=== PATIENT | female | born 1935 | race Caucasian/White ===

== ENCOUNTER → 2016-10-25 | Outpatient (CLI) | payer MEDICARE, OTHER ==
[~2016-10-25] MED LIST: AMLO1TAB12 PO; ASPI81TA3 PO; CHOL100016 PO; COLE625T2 PO; FISH1CAP7 PO; LEVO25TA53 PO; PROP10TA6 PO; [UNRECOGNIZED DRUG - CODE] PO
[2016-10-25 09:22] LABS: BASOPHILS % 0.4 % (0.0-2.0); EOSINOPHILS # 0.1 10^3/ul (0.0-0.5); EOSINOPHILS % 2.3 % (0.0-7.0); HEMATOCRIT 40.6 % (37.0-47.0); HEMOGLOBIN 13.5 g/dl (12.0-16.0); LYMPHOCYTES # 1.9 10^3/ul (0.8-2.9); LYMPHOCYTES % 33.9 % (15.0-51.0); MEAN CORPUSCULAR HEMOGLOBIN 30.2 pg (29.0-33.0); MEAN CORPUSCULAR HGB CONC 33.2 g/dl (32.0-37.0); MEAN PLATELET VOLUME 7.5 fl (7.4-10.4); MONOCYTE # 0.5 10^3/ul (0.3-0.9); MONOCYTES % 8.9 % (0.0-11.0); NEUTROPHIL # 3.1 10^3/ul (1.6-7.5); NEUTROPHILS % 54.5 % (39.0-77.0); PLATELET COUNT 245 10^3/UL (140-440); RED BLOOD COUNT 4.46 10^6/ul (4.20-5.40); RED CELL DISTRIBUTION WIDTH 15.6 % (11.5-14.5); UNCORRECTED WBC 5.6 10^3/ul (4.8-10.8); WHITE BLOOD COUNT 5.6 10^3/ul (4.8-10.8)
[2016-10-25 09:24] LABS: CONDITION 1; LH ANALYZER COMMENTS 1
[2016-10-25 09:37] LABS: ALBUMIN 4.1 g/dl (3.3-4.9)
[2016-10-25 09:38] LABS: POTASSIUM 4.3 mmol/L (3.5-5.1)
[2016-10-25 09:40] LABS: ALBUMIN/GLOBULIN RATIO 1.17; BILIRUBIN,INDIRECT 0.2 mg/dl (0-1.1); BILIRUBIN,TOTAL 0.2 mg/dl (0.2-1.3); CALCIUM 8.7 mg/dl (8.4-10.2); CREATININE 0.52 mg/dl (0.44-1.00); TOTAL PROTEIN 7.6 g/dl (6.1-8.1)
--- NOTE | 2016-10-25 10:37 | RADRPT ---
PROCEDURE: CT Lumbar Spine. CLINICAL INDICATION: Back pain TECHNIQUE: Continuous axial CT images were obtained. Sagittal and coronal reformations were creat ed from the raw axial data. The images were reviewed on a PACS workstation. The calculated radiatio n dose measures 1037 mGy centimeters. The CTDI measures 35 mGy COMPARISON: None available FINDINGS: There is a normal lumbar lordosis. There is an upper lumbar levoscoliosis. There is grade 1 angela listhesis at L3-L4, measuring up to 5 mm. There is severe disk space narrowing at L5-S1, with vacuu m disk change and adjacent endplate sclerosis. Vertebral body heights are maintained. No focal lyti c or sclerotic lesions are identified. T12-L1: There is a mild disk osteophyte complex, 3 mm. There is mild bilateral facet hypertrophy. There is no bony central canal stenosis. There is no bony foraminal stenosis.. L1-L2: There is a mild disk osteophyte complex, 3 mm. There is mild bilateral facet hypertrophy. T here is no bony central canal stenosis. There is minimal bilateral bony foraminal stenosis.. L2-L3: There is a mild to moderate disk osteophyte complex, 4 mm. There is mild to moderate bilater al facet hypertrophy. There is mild bony central canal stenosis, and bilateral left greater than ri ght lateral recess narrowing. There is minimal bilateral bony foraminal stenosis.. L3-L4: There is grade 1 anterolisthesis. There is severe bilateral facet hypertrophy. There is mod erate appearing bony central canal stenosis with canal diameter measuring 7 x 9 mm. There is bilate ral lateral recess narrowing. There is moderate bilateral bony foraminal stenosis.. L4-L5: There is a mild diffuse disk bulge. There is severe bilateral facet hypertrophy. There is m ild to moderate central canal stenosis, and right lateral recess stenosis. There is mild to moderat e left and moderate right bony foraminal stenosis.. L5-S1: There is a moderate disk osteophyte complex. There is severe bilateral facet hypertrophy. T here is mild central canal stenosis. There is severe bilateral foraminal stenosis.. There is no abnormal paravertebral soft tissue mass. There is extensive aortic and branch vessel ca lcification. IMPRESSION: 1. Upper lumbar levoscoliosis. 2. At L3-L4, there is grade 1 anterolisthesis, 5 mm. Along with severe facet hypertrophy, this pro duces moderate central canal stenosis and bilateral lateral recess narrowing. There is moderate janina ateral foraminal stenosis. 3. Mild to moderate central canal stenosis and moderate right bony foraminal stenosis at L4-L5, rel ated to mild disk bulge and severe facet hypertrophy. 4. Severe bilateral foraminal stenosis and mild central canal stenosis at L5-S1, secondary to disk height loss, moderate disk osteophyte complex, and severe facet hypertrophy. 5. Mild central canal stenosis at L2-L3. RPTAT: DD .Jung Johnson MD, Date Time Electronically viewed and signed by .Jung Johnson MD, on 10/25/2016 10:36 .T/
[2016-10-27 16:15] LABS: CREATININE, RANDOM URINE 32 mg/dL (20-320); MICROALBUMIN <0.2 mg/dL; MICROALBUMIN/CREATININE RATIO NOTE (<30)
== END | disposition home or self-care (01) ==
LOC: LAB 08:29
PROVIDERS: ATTEND Internal Medicine Nephrology
DX: M54.5 Low back pain (principal); M47.896 Other spondylosis, lumbar region; M48.07 Spinal stenosis, lumbosacral region; M41.86 Other forms of scoliosis, lumbar region; I10 Essential (primary) hypertension
CPT/HCPCS: 72131; 80053; 80061; 82043; 85025

== ENCOUNTER 2016-12-21 18:19 | Emergency (ER) | payer MEDICARE, OTHER ==
[~2016-12-21] VITALS: Ht 167.6 cm; Wt 75.0 kg
[2016-12-21 19:03] VITALS: Ht 167.6 cm; Wt 75.0 kg
[2016-12-21] MEDS ORDERED: SOD CHLORIDE 0.9% 1,000 ML IV ONE (22:30)
[2016-12-21] MEDS ORDERED: ALPRAZOLAM 0.25 MG TAB PO ONE (22:30)
[2016-12-21] MEDS ORDERED: AMLO-350 PO (22:34)
[2016-12-21] MEDS ORDERED: OMEP20CA16 PO (22:34)
[2016-12-21 22:41] LABS: ADD SCAN DIFF NO
[2016-12-21 22:47] LABS: BASOPHIL # 0.1 10^3/ul (0.0-0.1); BASOPHILS % 0.4 % (0.0-2.0); EOSINOPHILS % 0.1 % (0.0-7.0); HEMATOCRIT 39.9 % (37.0-47.0); HEMOGLOBIN 13.2 g/dl (12.0-16.0); LYMPHOCYTES # 1.2 10^3/ul (0.8-2.9); LYMPHOCYTES % 8.7 % (15.0-51.0); MEAN CORPUSCULAR HEMOGLOBIN 30.1 pg (29.0-33.0); MEAN CORPUSCULAR HGB CONC 33.1 g/dl (32.0-37.0); MEAN CORPUSCULAR VOLUME 90.9 fl (82.0-101.0); MEAN PLATELET VOLUME 10.2 fl (7.4-10.4); MONOCYTES % 7.4 % (0.0-11.0); NEUTROPHIL # 11.6 10^3/ul (1.6-7.5); PLATELET COUNT 201 10^3/UL (140-415); RED BLOOD COUNT 4.39 10^6/ul (4.20-5.40); RED CELL DISTRIBUTION WIDTH 15.6 % (11.5-14.5)
[2016-12-21 22:59] LABS: POTASSIUM 4.1 mmol/L (3.5-5.1)
[2016-12-21 23:01] LABS: ADD UMIC YES; BILIRUBIN,INDIRECT 0.2 mg/dl (0-1.1); BILIRUBIN,TOTAL 0.2 mg/dl (0.2-1.3); CREATININE 0.62 mg/dl (0.44-1.00); URINE BILIRUBIN (Dip) NEGATIVE (NEGATIVE); URINE BLOOD (Dip) 2+ (NEGATIVE); URINE COLOR LT. YELLOW (YELLOW); URINE GLUCOSE (Dip) NEGATIVE (NEGATIVE); URINE KETONES (Dip) NEGATIVE (NEGATIVE); URINE LEUKOCYTE ESTERASE (Dip) 1+ (NEGATIVE); URINE NITRITE (Dip) NEGATIVE (NEGATIVE); URINE TOTAL PROTEIN (Dip) NEGATIVE (NEGATIVE); URINE UROBILINOGEN (Dip) 0.2 E.U./dL (0.1-1.0)
[2016-12-21 23:02] LABS: CALCIUM 9.1 mg/dl (8.4-10.2)
--- NOTE | 2016-12-21 23:05 | RADRPT ---
PROCEDURE: XR Chest. CLINICAL INDICATION: Abdominal pain. TECHNIQUE: Single frontal view of the chest was obtained COMPARISON: 11/25/2014. FINDINGS: The heart and mediastinum are within normal limits. Atherosclerotic calcifications in the thoracic aorta. Elevated right hemidiaphragm. Centrolobular emphysema. The lungs are clear. There is no pleural effusion or pneumothorax. IMPRESSION: No acute disease. RPTAT: [facility] Physician Shanae Date Time Electronically viewed and signed by Flex Kiser Physician on 12/21/2016 23:05 RS/
[2016-12-21 23:19] LABS: BACTERIA,URINE FEW; SQUAMOUS EPITHELIAL CELL,UR FEW
[2016-12-22] VITALS: BP 116/62; PULSE 102; RESP 24; TEMP 98.1
[2016-12-22] MEDS ORDERED: CEFTRIAXONE 1 GM/50 ML (PMX) 50 ML IVPB ONE
[2016-12-22] MEDS ORDERED: HYDR25CA PO (00:59)
[2016-12-22] MEDS ORDERED: CIPR500T4 PO (00:59)
--- NOTE | 2016-12-22 01:03 | ERD ---
ER Documentation Chief Complaint Date/Time DATE: 12/22/16 TIME: 01:00 Chief Complaint anxiety due to her cousin annoyed her today HPI This 81-year-old female comes in with her daughter after she got in an argument with her niece today. Otherwise everyone that she lives with she gets along with well. This sometimes causes her to and anxiety. Also noted that she had a fever. Patient denies any signs of cough dysuria or frequent urination fever or chills. She states that she is completely asymptomatic except for anxiety which causes her to have fever sometimes. ROS All systems reviewed and are negative except as per history of present illness. Medications Home Meds Active Scripts Hydroxyzine Pamoate* (Vistaril*) 25 Mg Capsule, 25 MG PO Q8 for ANXIETY, #8 CAP Prov:TASHALUIS ALFREDO DO 12/22/16 Ciprofloxacin Hcl* (Ciprofloxacin Hcl*) 500 Mg Tablet, 500 MG PO BID for 7 Days , TAB Prov:LUIS ALFREDO CORDOVA DO 12/22/16 Reported Medications Omeprazole* (Omeprazole*) 20 Mg Capsule.dr, 20 MG PO DAILY, #30 CAP 12/21/16 Amlodipine/Valsartan (Amlodipine-Valsartan 5-160 mg) 1 Each Tablet, 1 TAB PO DAILY, #30 TAB 12/21/16 Aspirin* (Aspirin* Chew) 81 Mg Tab.chew, 81 MG PO DAILY 11/09/12 Colesevelam Hcl* (Welchol*) 625 Mg Tablet, 625 MG PO BID 11/09/12 Propranolol Hcl* (Propranolol Hcl*) 10 Mg Tablet, 10 MG PO BID 11/09/12 Discontinued Reported Medications Levothyroxine Sodium* (Levothyroxine Sodium*) 25 Mcg Tablet, 25 MCG PO AC BREAKFAST, TAB 12/01/14 Cholecalciferol (Vitamin D3) 1,000 Unit Capsule, 1000 UNIT PO HS 04/09/13 Amlodipine-Valsartan (Exforge) 1 Tab Tablet, 1 TAB PO AM 04/09/13 Fish Oil/Borage/Flax/Om3,6,9#1 (Triple [place]rens 3-6-9 Softgel) 1 Each Capsule, 1 EACH PO DAILY 11/09/12 Calcium Carb/Vit D3/Minerals (Caltrate-600 With Vit D Tab) 1 Tab Tablet, 1 TAB PO DAILY 11/09/12 Allergies Allergies: Coded Allergies: Penicillins (Verified Allergy, Severe, THROAT SWELLING, 12/21/16) PMhx/Soc History of Surgery: Yes (APPENDECTOMY, TAHBSO, C SECTION LEF BREAST CYST, BACK CYST) Anesthesia Reaction: No Hx Neurological Disorder: No Hx Respiratory Disorders: Yes (SEASONAL ALLERGY) Hx Cardiac Disorders: Yes (HTN, DJD, HLP) Hx Psychiatric Problems: No Hx Miscellaneous Medical Probl: Yes (R HAMMER TOE PROB) Hx Alcohol Use: No Hx Substance Use: No Hx Tobacco Use: No Smoking Status: Never smoker Physical Exam Vitals Vital Signs Date Time Temp Pulse Resp B/P Pulse Ox O2 Delivery O2 Flow Rate FiO2 12/22/16 00:00 98.1 102 24 116/62 93 Room Air 12/21/16 22:15 98.3 109 17 110/52 95 Room Air 12/21/16 19:03 101.8 92 20 137/77 98 Physical Exam Const: [] No distress Head: Atraumatic Eyes: Normal Conjunctiva ENT: Normal External Ears, Nose and Mouth. Neck: Full range of motion..~ No meningismus. Resp: Clear to auscultation bilaterally Cardio: Regular rate and rhythm, no murmurs Abd: Soft, non tender, non distended. Normal bowel sounds Skin: No petechiae or rashes, warm to touch Ext: No cyanosis, or edema Neur: Awake and alert 3, no focal deficits Psych: Normal Mood and Affect Result Diagram: 12/21/16 2220 12/21/16 2220 Results 24 hrs Laboratory Tests Test 12/21/16 22:20 Alanine Aminotransferase (ALT/SGPT) 32IU/L Albumin 4.0g/dl Albumin/Globulin Ratio 1.00 Alkaline Phosphatase 116IU/L Anion Gap 16 Aspartate Amino Transf (AST/SGOT) 33IU/L Basophils # 0.110^3/ul Basophils % 0.4% Blood Urea Nitrogen 14mg/dl Calcium Level 9.1mg/dl Carbon Dioxide Level 26mmol/L Chloride Level 101mmol/L Creatinine 0.62mg/dl Direct Bilirubin 0.00mg/dl Eosinophils # 0.010^3/ul Eosinophils % 0.1% Globulin 4.00g/dl Glucose Level 144mg/dl Hematocrit 39.9% Hemoglobin 13.2g/dl Indirect Bilirubin 0.2mg/dl Lactic Acid Level 2.0mmol/L Lipase 66U/L Lymphocytes # 1.210^3/ul Lymphocytes % 8.7% Mean Corpuscular Hemoglobin 30.1pg Mean Corpuscular Hemoglobin Concent 33.1g/dl Mean Corpuscular Volume 90.9fl Mean Platelet Volume 10.2fl Monocytes # 1.010^3/ul Monocytes % 7.4% Neutrophils # 11.610^3/ul Neutrophils % 83.0% Nucleated Red Blood Cells # 0.010^3/ul Nucleated Red Blood Cells % 0.0/100WBC Platelet Count 52249^3/UL Potassium Level 4.1mmol/L Red Blood Count 4.3910^6/ul Red Cell Distribution Width 15.6% Sodium Level 139mmol/L Total Bilirubin 0.2mg/dl Total Protein 8.0g/dl Urine Bacteria FEW Urine Bilirubin NEGATIVE Urine Clarity CLEAR Urine Color LT. YELLOW Urine Glucose NEGATIVE% Urine Hemoglobin 2+ Urine Ketones NEGATIVE Urine Leukocyte Esterase 1+ Urine Microscopic RBC 2-5/HPF Urine Microscopic WBC 5-10/HPF Urine Nitrite NEGATIVE Urine Specific [place] <=1.005 Urine Squamous Epithelial Cells FEW Urine Total Protein NEGATIVE Urine Urobilinogen 0.2 E.U./dL Urine pH 6.0 White Blood Count 14.010^3/ul Current Medications Medications (Trade) Dose Ordered Sig/Isaak Route PRN Reason Start Time Stop Time Status Last Admin Dose Admin Sodium Chloride (NS) 1,000 ml @ 1,000 mls/hr Q1H ONCE IV 12/21/16 22:30 12/21/16 23:29 DC 12/21/16 22:42 Alprazolam 0.25 mg 0.25 mg ONCE ONCE PO 12/21/16 22:30 12/21/16 22:31 DC 12/21/16 22:42 Ceftriaxone Sodium (Rocephin) 50 ml @ 100 mls/hr ONCE ONCE IVPB 12/22/16 00:00 12/22/16 00:29 DC 12/22/16 00:00 Procedures/MDM Patient anxiety attack also has a UTI with the retake cardio and white count. The patient Directly meets sepsis criteria, she claims to be completely asymptomatic. She does not want to stay in the hospital because she feels well. She was given a 0.25 mg Xanax tablet which made her feel much better and stated that she didn't have anxiety. She was given 1 g of Rocephin in the emergency room as I would still like to protect her from worsening infection. Discharging with Cipro for 7 days as well as a few Vistaril tabs for anxiety. Primary care follow-up in the next 2 days. Return precautions also given for any worsening fevers or any other concerning symptoms. Departure Diagnosis: Primary Impression: Anxiety Additional Impression: Bladder infection Condition: Stable Patient Instructions: Understanding Urinary Tract Infections (UTIs), Anxiety Reaction Additional Instructions: Llame al doctor MAANA y ramsey andra SELINA PARA DENTRO DE 2-3 DEAL.Dgale a la secretaria que nosotros le instruimos hacer esta selina.Avise o llame si knott condicin se empeora antes de la selina. Regresa aqui si peor o no mejor. LUIS ALFREDO CORDOVA DO Dec 22, 2016 01:03
== END 2016-12-22 01:06 | disposition home or self-care (01) ==
LOC: E/R 18:19
DX: F41.9 Anxiety disorder, unspecified (principal); N30.90 Cystitis, unspecified without hematuria; I10 Essential (primary) hypertension; Z79.82 Long term (current) use of aspirin
CPT/HCPCS: 71010; 80053; 81001; 83605; 83690; 85025; 96361; 96365; 99284; J0696; J7030; 81003

== ENCOUNTER → 2017-03-29 | Outpatient (CLI) | payer MEDICARE, OTHER ==
[~2017-03-29] MED LIST changes: +AMLO-350 PO; -AMLO1TAB12 PO; -CHOL100016 PO; +CIPR500T4 PO; -FISH1CAP7 PO; +HYDR25CA PO; -LEVO25TA53 PO; +OMEP20CA16 PO; -[UNRECOGNIZED DRUG - CODE] PO
[2017-03-29 08:29] LABS: ADD SCAN DIFF NO
[2017-03-29 08:52] LABS: BASOPHILS % 0.7 % (0.0-2.0); EOSINOPHILS # 0.3 10^3/ul (0.0-0.5); EOSINOPHILS % 4.9 % (0.0-7.0); HEMATOCRIT 39.6 % (37.0-47.0); HEMOGLOBIN 12.8 g/dl (12.0-16.0); LYMPHOCYTES # 1.9 10^3/ul (0.8-2.9); LYMPHOCYTES % 35.8 % (15.0-51.0); MEAN CORPUSCULAR HEMOGLOBIN 30.3 pg (29.0-33.0); MEAN CORPUSCULAR HGB CONC 32.3 g/dl (32.0-37.0); MEAN CORPUSCULAR VOLUME 93.8 fl (82.0-101.0); MONOCYTE # 0.5 10^3/ul (0.3-0.9); MONOCYTES % 8.6 % (0.0-11.0); NEUTROPHIL # 2.7 10^3/ul (1.6-7.5); NEUTROPHILS % 49.8 % (39.0-77.0); PLATELET COUNT 233 10^3/UL (140-415); RED BLOOD COUNT 4.22 10^6/ul (4.20-5.40); RED CELL DISTRIBUTION WIDTH 15.3 % (11.5-14.5); WHITE BLOOD COUNT 5.4 10^3/ul (4.8-10.8)
[2017-03-29 09:03] LABS: ALBUMIN 4.7 g/dl (3.3-4.9); ALBUMIN/GLOBULIN RATIO 1.8; BILIRUBIN,INDIRECT 0.1 mg/dl (0-1.1); BILIRUBIN,TOTAL 0.1 mg/dl (0.2-1.3); CALCIUM 8.8 mg/dl (8.4-10.2); CREATININE 0.61 mg/dl (0.44-1.00); POTASSIUM 4.4 mmol/L (3.5-5.1); TOTAL PROTEIN 7.3 g/dl (6.1-8.1)
--- NOTE | 2017-03-30 09:05 | RADRPT ---
PROCEDURE: CT of the left ankle CLINICAL INDICATION: Left ankle pain TECHNIQUE: Axial images through the left ankle without IV contrast. Coronal and sagittal reforma ts. Images were interpreted at an independent PACS workstation. CTDI at time of 18.14 mGy DLP 299.32 mGy-cm One or more of the following dose reduction techniques were used: Automated exposure control Adjustment of the mA and / or kV according to patient size Use of iterative reconstruction technique. COMPARISON: None available FINDINGS: There is no CT evidence of acute fracture. There is overall moderate tibiotalar osteoarthrosis with large degenerative subchondral cysts in the medial talar dome and medial malleolus. There are ante rior and posterior tibial talar osteophytes. There is moderate calcaneal enthesopathy. There are faint calcification surrounding the flexor hallicis longus tendon at the level of the tibi otalar joint (sagittal 43), suggesting chronic inflammation. There is no high-grade tendon tear tracey ntified. There is bone proliferation and fragmentation at the tip of the medial malleolus from juan te injury to the deep deltoid. There are mild degenerative changes at the midfoot including the roz onavicular joint. IMPRESSION: 1. No CT evidence of acute fracture. 2. Moderate tibiotalar osteoarthrosis with large degenerative subchondral cysts in the medial talar dome. 3. Bone proliferation and fragmentation at the tip of the medial malleolus suggesting remote injury . Query medial ankle impingement. 5. Moderate calcaneal enthesopathy. RPTAT: [facility] .Say Hobson MD, Date Time Electronically viewed and signed by .Say Hobson MD, on 03/30/2017 09:05 .Moni/
== END | disposition home or self-care (01) ==
LOC: C/S 08:09
PROVIDERS: ATTEND Internal Medicine Nephrology
DX: M19.072 Primary osteoarthritis, left ankle and foot (principal); M77.32 Calcaneal spur, left foot
CPT/HCPCS: 73700; 80053; 85025; 85651; 86140

== ENCOUNTER → 2017-12-01 | Outpatient (CLI) | END | disposition home or self-care (01) ==

== ENCOUNTER 2018-02-19 10:41 | Emergency (ER) | END 2018-02-19 14:50 | disposition home or self-care (01) ==